=== PATIENT | female | born 1960 | race Caucasian/White ===

== ENCOUNTER 2024-05-31 17:05 | Inpatient (IN) | payer BC, SELFPAY ==
[2024-05-31] VITALS (11 sets, daily range): BP systolic 109–141; BP diastolic 53–77; BMI 25.8
[2024-05-31 12:08] LABS: Urine Albumin Trace (Neg - Trace); Urine Bilirubin Negative (Negative); Urine Character Clear (Clear); Urine Color Yellow; Urine Glucose Negative (Negative); Urine Ketone Trace (Negative); Urine Leukocyte 2+ (Negative); Urine Nitrite Negative (Negative); Urine Occult Blood Trace (Negative); Urine Urobilinogen Negative (Neg - 1+); Urine pH 6.5 (5.0-9.0)
[2024-05-31 12:12] LABS: % Basophils 0.6 % (0-2); % Eosinophils 0.1 % (0-6); % Immature Granulocytes 0.1 % (0-0.5); % Lymphocytes 16.5 % (20.5-51.1); % Monocytes 8.9 % (1.7-9.3); % Neutrophils 73.8 % (42.2-75.2); Absolute Basophils 0.1 10^3/uL (0-0.2); Absolute Lymphocytes 1.7 10^3/uL (1.2-3.4); Absolute Monocytes 0.9 10^3/uL (0.1-0.6); Absolute Neutrophils 7.7 10^3/uL (1.4-6.5); Hematocrit 37.5 % (37.0-47.0); Hemoglobin 12.9 g/dL (12.0-16.0); Mean Corp Hgb Conc. 34.4 g/dL (33.0-37.0); Mean Corpuscular Volume 84.3 fL (81.0-99.0); Mean Platelet Volume 9.5 fL (7.4-10.4); Nucleated Red Blood Cells % 0 %; Platelet Count 250 10^3/uL (130-400); Red Blood Cell Count 4.45 10^6/uL (4.20-5.40); Red Cell Dist. Width 13.2 % (11.5-14.5); White Blood Cell Count 10.4 10^3/uL (4.8-10.8)
[2024-05-31 12:25] LABS: Urine Bacteria Many (Negative)
[2024-05-31 12:26] LABS: Urine Granular Cast 0-2 /LPF (0); Urine Squamous Cell 16-20 /LPF (Few)
[2024-05-31 12:27] LABS: Urine White Cell 50-60 /HPF (0-5)
[2024-05-31 12:28] LABS: Urine Red Blood Cell 0-2 /HPF (0-2)
[2024-05-31 12:29] LABS: ALT (SGPT) 19 U/L (0-35); AST (SGOT) 29 U/L (14-36); Albumin 4.3 g/dl (3.5-5.0); Alkaline Phosphatase 65 U/L (38-126); Blood Urea Nitrogen 12 mg/dl (7-17); Calcium 9.9 mg/dl (8.4-10.2); Carbon Dioxide 21 mmol/L (22-30); Chloride 106 mmol/L (98-107); Glucose 137 mg/dl (70-99); Potassium 4.1 mmol/L (3.5-5.1); Sodium 134 mmol/L (135-145); Total Bilirubin 0.6 mg/dl (0.2-1.3); eGFR > 60.00
--- NOTE | 2024-05-31 13:25 | ED.GENMED ---
History of Present Illness
General
Chief Complaint: Urinary Symptoms
Source: patient
Exam Limitations: none
Time Seen by Provider: 05/31/24 11:32
Nursing documentation reviewed up to this point in time: agreed with
History of Present Illness
History of Present Illness:
The patient is a 61-year-old female the past medical history of kidney stones and frequent UTIs who reports 2 to 3 days of low-grade fever, nausea and right flank pain. Patient was just treated with a course of antibiotics last month for urinary
tract infection. She reports she has not had a CAT scan in a while and does not know the status of her kidney stones. Patient denies abdominal pain and vomiting. She denies diarrhea.
Past History
Past History
ED Past Medical History: Other (History of back pain, neck pain, arthritis, kidney stones, bipolar disorder.)
ED Past Surgical History: Gynecological (History of tubal ligation) and Tonsilectomy
Social History
Tobacco: Smoker
Alcohol: Other
Drug: None
Personal:
Living: other
Employment: Employed
Family History
Family History: Other
Review of Systems
Review of Systems
Allergies reviewed?: Yes
All Other Systems: ROS reviewed and negative except as documented in HPI and ROS
Constitutional: Reports fatigue
EENT: Reports no symptoms
Respiratory: Reports no symptoms
Cardiac: Reports no symptoms
ABD/GI: Reports nausea and anorexia
: Reports flank pain
Musculoskeletal: Reports no symptoms
Skin: Reports no symptoms
Neurological: Reports no symptoms
Endocrine: Reports no symptoms
Hematologic/Lymphatic: Reports no symptoms
Psychiatric: Reports no symptoms
Phy Exam
Physical Exam
Physical Exam:
Physical Exam
General: no apparent distress, not acutely ill
Neck: supple. no meningeal signs. normal psoterior pharynx
Heart: s1/s2 regular rate and rhythm, no murmur. equal radial pulses.
Lungs: no acute respiratory distress. clear bilaterally
Abdomen: normal bowel sounds. not tender. Mild right flank tenderness
Neuro: alert and oriented. no focal neurological deficits
Skin: no rash
Psychiatric: well kept. interactive and cooperative
Extremities: no edema. no calf tenderness. negative homans. good distal pulses
Course
Orders/Labs/Results
Orders:
Orders
05/31/24 11:53
Complete Blood Count/With Diff Urgent
Comprehensive Metabolic Panel Urgent
Urinalysis Reflex To Culture Urgent
Date Specimen was Collected: 05/31/24
Time Specimen was Collected: 11:49
Urine Microscopic Reflex Cult Urgent
Urine Culture Urgent
[facility] Source: U
Specimen Description:
Date Specimen was Collected: 05/31/24
Time Specimen was Collected: 11:49
05/31/24 13:26
CT Abd/pel Without Iv Or Oral Urgent
Comment:
Reason For Exam: fever, UTI
05/31/24 14:44
Ciprofloxacin 400 mg/[id number] [Cipro 400 mg] 200 ml IV NOW
05/31/24 14:51
Ciprofloxacin 400 mg/[id number] [Cipro 400 mg] 200 ml IV NOW
Abnormal Lab Results
05/31/24
11:53
Absolute Neuts (auto) 7.7 H 10^3/uL
(1.4-6.5)
Absolute Monos (auto) 0.9 H 10^3/uL
(0.1-0.6)
Lymphocytes % 16.5 L %
(20.5-51.1)
Sodium 134 L mmol/L
(135-145)
Carbon Dioxide 21 L mmol/L
(22-30)
Glucose 137 H mg/dl
(70-99)
Urine Ketones Trace A
(Negative)
Ur Occult Blood Reflex Trace A
(Negative)
Leukocyte Esterase Rfl 2+ A
(Negative)
Urine WBC (Reflex) 50-60 A /HPF
(0-5)
Urine Bacteria (Reflex) Many A
(Negative)
05/31/24 11:53
05/31/24 11:53
Vital Signs
Initial and Last Documented VS:
Initial Vital Signs
Temp Pulse Resp BP Pulse Ox
99.0 F 90 16 116/67 96
05/31/24 10:46 05/31/24 10:46 05/31/24 10:46 05/31/24 10:46 05/31/24 10:46
Last Documented Vital Signs
Temp Pulse Resp BP Pulse Ox
99.0 F 84 21 113/70 96
05/31/24 10:46 05/31/24 13:56 05/31/24 13:15 05/31/24 13:56 05/31/24 13:30
MDM/Problems Addressed
Differential Diagnosis Includes:
Acute pyelonephritis, renal colic, infected kidney stone
MDM/Problems Addressed:
Patient presents with acute flank pain, fever and nausea
Chronic conditions affecting care:
History of kidney stones
Acute Exacerbation and/or Progression of Chronic Illness:
Patient may have acute hydronephrosis due to passing of kidney stone
*Radiology
Radiology exam reviewed: radiology read reviewed
*Pulse Oximetry
Patient hypoxic: no
*EKG
Interpreted by ED Provider?: NA
*Interior Design Instructor Interpretation
Rate: normal
Interpretation: normal
Rhythm: sinus
*Critical Care Note
Total Time (30-74mins, 75-104mins- exclusive of procedures): Not Applicable
Data Reviewed
Review of Other/Old Records Reveals: Labs (Urine urine culture reviewed from 2020 which showed E. coli)
Source: patient and family
Patient Management
Discussion with other providers: Hospitalist and Other (Dr. Ramos from urology)
Escalation/DeEscalation of care consider admission/obs:
Given patient's recurrent UTIs and multiple kidney stones, decision made to admit patient for IV antibiotics, especially with a low-grade fever and nausea
ED Attending Note
-
Portions of this chart may have been created with voice recognition software.� Occasional wrong word or��sound alike� substitutions may have occurred due to the inherent limitations of voice recognition software.
Discharge Plan
Departure
Patient Disposition: Admit
Date of Disposition: 05/31/24
Time of Disposition: 14:38
Admit to: Med/Surg
Presentation/result/management discussed w/ accepting MD/DO: Hospitalist
Patient with high blood pressure during this ER visit?: No
Condition: Good
Covid-19: Not Applicable
Discharge Problem:
recurrent UTI, Bilateral kidney stones
Prescriptions:
No Action
fluticasone propion-salmeterol 250-50 mcg/dose Blister With Device
1 inh INHALATION R BID
acetaminophen 500 mg Tablet
1,000 mg PO Q6HPRN PRN (Reason: mild pain)
apple cider vinegar 300 mg Tablet
600 mg PO DAILY
magnesium oxide 400 mg magnesium Capsule
400 mg PO DAILY
melatonin 10 mg Tablet
10 mg PO HS
Referrals:
Manuel Ordoñez MD [Family Provider] -
Interventions
Interventions:
*Risk Screen - Suicide Last Done: 05/31/24 11:55
*General Assessment Last Done: 05/31/24 11:54
*Neglect/Abuse Screening Last Done: 05/31/24 11:54
*ED COVID-19 Vaccine History Last Done: 05/31/24 11:54
ED-Female Genitourinary Assessment Last Done: 05/31/24 11:58
Discharge Date and Time
Print Language: UPPER SORBIAN
[2024-05-31] MEDS: CIPRO 400 MG 200 IV (14:59)
--- NOTE | 2024-05-31 16:27 | HPS.HSE ---
Addendum entered and electronically signed by Mickey Prado MD 05/31/24 17:11:
Pt with 2-3 days of fever, nausea, rt>lt flank pain
Multiple drug allergies, developed rash at infusion site while receiving Cipro
Pt seen independently and agree with TRACK REPAIR PERSON note
Lungs clear
CV reg
Abd soft, nondistended
Back without CVA tenderness
Ext no edema
Imp:UTI
left perinephric inflammatory changes of left kidney consistent with pyelonephritis
multiple abx allergies
P:IV Azactam/Vanco pending Cx results
discussed with Dr. Ramos, will need follow up in their office post dc regarding multiple stones
Original Note:
Family Physician
-
Family Physician: Manuel Ordoñez
Chief Complaint
-
Nausea, low-grade fever, bilateral flank pain
History of Present Illness
64-year-old female from home complaining of 2 to 3 days of low-grade fever, nausea with bilateral flank pain increased on the right side.. She reported she completed a course of antibiotics last month for a UTI. Urinalysis in the ER shows UTI.
She was given Cipro but developed hives. She does have allergies to amoxicillin, penicillin, erythromycin. She denies headache, sore throat, runny nose, chest pain, palpitations, shortness breath, cough, abdominal pain, diarrhea.
She has past medical history of COPD, ex-smoker, renal calculi with right ureteral stent 2012, bipolar disorder history of depression/substance abuse/alcohol use sober since 2002, chronic neck and back pain.
Medical History
Past Medical History
Past Medical History: Reports Other
Additional Past Medical History:
COPD
Former smoker 1 pack a day x 54 years quit 2020
chronic back pain/neck pain
Arthritis
Renal calculi
Bipolar disorder-reports diagnosed when she was in active addiction
Prior alcohol abuse sober since 2002
Past Surgical History: Reports Other
Additional Past Surgical History:
Tubal ligation
Tonsillectomy
Right ureteral stent 2012 for stone with removal
Social History
Tobacco: Former Smoker (Former smoker 1 pack a day x 54 years quit 2020)
Alcohol: Former (Quit 2002)
Personal:
Living: With Family
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
Family History
Family History: Not pertinent
Allergies / Home Medications
Allergies reflects when Allergies were last updated in [facility].
Home Medications with original date entered in [facility]
Allergy/Medication List:
Allergies
Allergy/AdvReac Type Severity Reaction Status Date / Time
ciprofloxacin [From Cipro] Allergy Intermediate Rash Verified 05/31/24 15:15
erythromycin base Allergy rapid Verified 07/26/21 12:48
[Erythromycin Base] heart rate
Penicillins Allergy Hives Verified 07/26/21 12:48
prochlorperazine edisylate Allergy slurred Verified 07/26/21 12:48
[From Compazine] speech
prochlorperazine maleate Allergy pt has had Verified 07/26/21 12:48
[From Compazine] a dystonic
type
reaction
in the past
Home Medications
acetaminophen 500 mg tablet 1,000 mg PO Q6HPRN PRN mild pain 05/31/24
apple cider vinegar 300 mg tablet 600 mg PO DAILY 05/31/24
fluticasone 250 mcg-salmeterol 50 mcg/dose blistr powdr for inhalation 1 inh inhalation R BID 05/31/24
magnesium oxide 400 mg PO DAILY 05/31/24
melatonin 10 mg tablet 10 mg PO HS 05/31/24
Review of Systems
-
History Source: Patient and Family (Daughter at bedside)
A 12 point ROS was completed and negative except as noted: Yes
Constitutional: Reports Fever; Denies Chills
EENT: Denies Sore Throat or Runny Nose
Respiratory: Denies Cough or Trouble Breathing
Cardiac: Denies Chest Pain, Diaphoresis, Palpitations or Syncope
Abdomen/GI: Reports Nausea; Denies Vomiting, Diarrhea, Constipated or Bloody Stools
: Reports Flank Pain (Bilateral); Denies Incontinence, Difficulty Voiding or Urgency
Musculoskeletal: Denies Joint Pain or Edema
Skin: Denies Itching or Rash
Neurological: Denies Dizzy or Headache
Endocrine: Reports No Symptoms
Hematologic/Lymphatic: Reports No Symptoms
Psych: Reports Calm
Physical Exam
Vital Signs
Vital Signs
Temp Pulse Resp BP Pulse Ox
99.0 F 77 20 122/63 97
05/31/24 10:46 05/31/24 15:45 05/31/24 15:45 05/31/24 15:04 05/31/24 15:45
Physical Exam
General: Comfortable and Conversant; No Pain, Fever or Chills
HEENT: NormoCephalic, Anicteric, Moist mucous membranes, PERRLA, [place] Conjunctivae and No Ptosis
Respiratory: Clear; No Wheezes, Rales or Rhonchi
Cardiac: S1/S2 and Regular Rhythm; No Murmur, Rub, Gallop or Peripheral Edema
GI: Soft, Non Tender, Non Distended and No Hepatosplenomegaly
Genito-urinary: No costovertebral tender
Musculoskeletal: No Clubbing, No Cyanosis and No Edema
Skin: Warm; No Dry or Rash
Neuro: AO x 3, No Motor Deficits, Nonfocal/grossly intact, Cranial Nerves Intact and No Sensory Deficits; No Slurred Speech, Facial Droop or Tremors
Psych: Calm
Laboratory Results
-
05/31/24 11:53
05/31/24 11:53
Laboratory Results
Total Bilirubin 0.6 mg/dl (0.2-1.3) 05/31/24 11:53
AST 29 U/L (14-36) 05/31/24 11:53
ALT 19 U/L (0-35) 05/31/24 11:53
Alkaline Phosphatase 65 U/L (38-126) 05/31/24 11:53
Impression/Plan
-
Impression/plan:
Admit to MedSurg
#Symptomatic UTI
Recent antibiotics 1 month ago
History of renal calculi requiring ureteral stent in 2012-followed with Dr. Mchugh
-Allergic reaction to Cipro in ER with hives allergy to penicillin E-Mycin
-Will give IV vancomycin, IV Azactam
-Follow CBC, CMP, urine culture
CT abdomen pelvis without contrast:
1.No CT evidence for ureteral calculus or hydroureteronephrosis.
2. SEVERE BILATERAL MEDULLARY NEPHROCALCINOSIS.
3. Large number of nonobstructing left intrarenal calculi.
4. Moderate amount of fecal material throughout the colon.
#COPD-no acute exacerbation
[id number] 3 years ago prior 1 pack a day
-Continue fluticasone inhaler twice daily
#Bipolar disorder /history of depression
-No reported meds, reports was diagnosed with this during active addiction
#History of Alcohol use sober since 2002
#chronic neck and back pain
-Continue Tylenol as needed
#Insomnia
-Continue melatonin 10 mg at bedtime
DVT prophylaxis
Subcu Lovenox
Full code
--- NOTE | 2024-05-31 17:45 | PTCARENOTE ---
Received Pt from ED on a stretcher. Walked from stretcher to bed. AAOx3 able to make needs known. Started on NSS 100ml/hr. VSS. Oriented to room and use of call betancourt. Son at bedside.
[2024-05-31] MEDS: NSS 1000 IV (17:56)
[2024-05-31] MEDS: LOVENOX 40 MG SC (18:42)
--- NOTE | 2024-05-31 18:49 | PHA.VAN.IN ---
Assessment
- Assessment
Renal Function: Appears similar to baseline
Maximum Temperature: 99
Minimum Temperature: 98.2
Concomitant Antimicrobials: Aztreonam
AUC Dosing Plan
- Dosing Variables
Dosing Weight (kg): 74.6
Dosing CrCl (ml/min): 56
Vd coefficient (L/kg): 0.7
- Empiric Dosing
Initial / Loading Dose: 1500mg
Maintenance Regimen: 1250mg Q24H
Estimated AUC (mcg*h/mL): 488
Estimated Peak (mcg*h/mL): 33.9
Estimated Trough (mcg/ml): 10.8
Estimated Half Life (H): 13.6
- Monitoring
No levels ordered at this time: Consider levels in next few days
Pharmacokinetics Vancomycin I
- -
Patient Age: 64
Patient Sex: Female
Vancomycin Day #: 1
Indication: Genito-Urinary Tract
Requesting Provider: Ruthann Hernandez
Pertinent Antimicrobial Allergies:
Ciprofloxacin, Erythromycin, Penicillins
Height / Weight:
Height 5 ft 7 in
Actual Weight 74.644 kg
Pertinent Past Medical History: Substance abuse sober since 2002
- Vital Signs / Lab Results
Temp Pulse Resp BP Pulse Ox
98.2 F 81 18 141/66 97
05/31/24 17:30 05/31/24 17:30 05/31/24 17:30 05/31/24 17:30 05/31/24 17:30
Lab Results - Hematology
05/31/24
11:53
WBC 10.4
Lab Results - Chemistry
05/31/24
11:53
BUN 12
Creatinine 1.0
Albumin 4.3
Lab Results - Urine
05/31/24
11:53
Urine Nitrite (Reflex) Negative
Leukocyte Esterase Rfl 2+ A
Urine WBC (Reflex) 50-60 A
Ur Squamous Epith Cells 16-20
Urine Bacteria (Reflex) Many A
[2024-05-31] MEDS: ADVAIR HFA 115/21 MCG INHALER INH (19:36)
[2024-05-31] MEDS: VANCOCIN 300 ML IV (19:40)
[2024-05-31] MEDS: VANCOCIN 300 MG IV (19:40)
[2024-05-31] MEDS: TORADOL 15 MG IV (20:02)
[2024-05-31] MEDS: AZACTAM 1000 MG IV (21:59)
[2024-05-31] MEDS: MELATONIN 10 MG PO (21:59)
[2024-05-31] MEDS: STERILE WATER FOR INJECTION 10 ML IV (21:59)
[2024-06-01] MEDS: NSS 1000 IV ×3 (05:41→21:32)
[2024-06-01] MEDS: AZACTAM 1000 MG IV (05:50)
[2024-06-01] MEDS: STERILE WATER FOR INJECTION 10 ML IV ×2 (05:51→13:29)
[2024-06-01 06:49] LABS: % Basophils 0.6 % (0-2); % Eosinophils 1.4 % (0-6); % Immature Granulocytes 0.4 % (0-0.5); % Lymphocytes 32.6 % (20.5-51.1); % Monocytes 12.7 % (1.7-9.3); % Neutrophils 52.3 % (42.2-75.2); Absolute Eosinophils 0.1 10^3/uL (0-0.7); Absolute Lymphocytes 2.3 10^3/uL (1.2-3.4); Absolute Monocytes 0.9 10^3/uL (0.1-0.6); Absolute Neutrophils 3.7 10^3/uL (1.4-6.5); Hematocrit 36.1 % (37.0-47.0); Hemoglobin 12.2 g/dL (12.0-16.0); Mean Corp Hgb Conc. 33.8 g/dL (33.0-37.0); Mean Corpuscular Hgb 29.6 pg (27.0-31.0); Mean Corpuscular Volume 87.6 fL (81.0-99.0); Mean Platelet Volume 9.6 fL (7.4-10.4); Nucleated Red Blood Cells % 0 %; Platelet Count 218 10^3/uL (130-400); Red Blood Cell Count 4.12 10^6/uL (4.20-5.40); Red Cell Dist. Width 13.2 % (11.5-14.5); White Blood Cell Count 7.1 10^3/uL (4.8-10.8)
[2024-06-01 07:00] VITALS: BP 129/63
[2024-06-01 07:09] LABS: ALT (SGPT) 16 U/L (0-35); AST (SGOT) 25 U/L (14-36); Albumin 3.7 g/dl (3.5-5.0); Alkaline Phosphatase 58 U/L (38-126); Blood Urea Nitrogen 17 mg/dl (7-17); Calcium 9.5 mg/dl (8.4-10.2); Carbon Dioxide 20 mmol/L (22-30); Chloride 108 mmol/L (98-107); Estimated Creatinine Clearance 56 ml/min; Glucose 94 mg/dl (70-99); Sodium 135 mmol/L (135-145); Total Bilirubin 0.4 mg/dl (0.2-1.3); Total Protein 6.2 g/dl (6.3-8.2); eGFR > 60.00
[2024-06-01] MEDS: ADVAIR HFA 115/21 MCG INHALER 2 PUFF INH ×2 (07:53→19:21)
--- NOTE | 2024-06-01 09:21 | W.PN.HOSP.TC ---
Today's Communication/Plan
-
see bold
Assessment / Plan
Assessment / Plan
#Symptomatic UTI
#Acute left pyelonephritis
Urine cultures growing E. coli, sensitivities pending
Change IV vancomycin, IV Azactam to IV Rocephin
#COPD-no acute exacerbation
[id number] 3 years ago prior 1 pack a day
-Continue fluticasone inhaler twice daily
#Bipolar disorder /history of depression
-No reported meds, reports was diagnosed with this during active addiction
#History of Alcohol use sober since 2002
#chronic neck and back pain
-Continue Tylenol as needed
#Insomnia
-Continue melatonin 10 mg at bedtime
DVT prophylaxis�subcu Lovenox
Full code
Total time spent to see the patient on the floor, examine the patient, review data and lab results, discuss treatment plan with patient, nursing staff around 36 minutes.
Physical Exam
General: No acute distress
HEENT: Normocephalic, Atraumatic, EOMI, MMM
Respiratory: Clear to Auscultation bilaterally
Cardiac: Normal S1/S2, Regular Rate and Rhythm
GI: Soft, Nontender, Nondistended, Normal Bowel Sounds
Extremities: No Clubbing, Cyanosis, or Edema
Neuro: Nonfocal/Grossly Intact
Psych: Calm, Cooperative
Derm: No Visible lesions
Anticipated Discharge: Within 24 hours
Subjective/Interval History
-
Date of Service: June 01, 2024
Dysuria resolved. Patient feels better. No fever, no nausea, no vomiting.
Objective Data
-
Labs:
Laboratory Results
06/01/24
06:04
WBC 7.1
Hgb 12.2
Hct 36.1 L
Plt Count 218
Sodium 135
Potassium 4.0
Chloride 108 H
Carbon Dioxide 20 L
BUN 17
Creatinine 1.0
Glucose 94
Calcium 9.5
Total Bilirubin 0.4
AST 25
ALT 16
Alkaline Phosphatase 58
Vital Signs:
Vital Signs
Temp Pulse Resp BP Pulse Ox
98.2 F 88 16 129/63 97
06/01/24 07:00 06/01/24 08:18 06/01/24 08:18 06/01/24 07:00 06/01/24 08:18
I&O
05/31/24 06/01/24 06/02/24
06:59 06:59 06:59
Intake Total 1460 / 1460
Balance 1460 / 1460
[2024-06-01 10:48] VITALS: BP 123/70; PULSE 79
--- NOTE | 2024-06-01 12:47 | CM ---
Reviewed chart, met with patient to obtain information for assessment. Patient lives with her daughter in a single two story home with three steps to enter. She described herself as independent with her ADLs, personal care, dressing and bathing. She
ambulates without use of an assistive device. She can cook, clean, do senior site manager and laundry. She drives and can get to her appointments and does her own shopping. Patient is employed advanced practice rn.
Patient denied any DME in her home.
She has not had VN.
Patient has not been to a SNF in the past.
Patient has a prescription plan and uses, [facility] in [place] for all of his medications.
Patient's PCP is, Dr. Manuel Ordoñez.
Patient stated that she feels functionally at her baseline and will be able to return home when medically cleared for discharge.
Plan: Case management will continue to follow and assist with discharge planning. Home when stable.
[2024-06-01] MEDS: ROCEPHIN 1000 MG IV (13:28)
[2024-06-01] MEDS: TORADOL 15 MG IV (13:35)
[2024-06-01 15:00] VITALS: BP 119/63
[2024-06-01] MEDS: LOVENOX 40 MG SC (17:09)
[2024-06-01] MEDS: MELATONIN 10 MG PO (21:31)
[2024-06-01 23:00] VITALS: BP 122/64
[2024-06-02] MEDS: TORADOL 15 MG IV (02:15)
[2024-06-02 07:00] VITALS: BP 121/64
[2024-06-02] MEDS: ADVAIR HFA 115/21 MCG INHALER 2 PUFF INH (07:15)
--- NOTE | 2024-06-02 08:25 | W.PN.HOSP.TC ---
Today's Communication/Plan
-
Discharge today
Assessment / Plan
Assessment / Plan
#Symptomatic UTI
#Acute left pyelonephritis
Urine cultures growing E. coli, pansensitive
Status post IV vancomycin and IV Azactam
Currently on IV Rocephin
Medically stable for discharge on Bactrim to complete a 7-day course
She has been tolerating all the above antibiotics without any adverse reactions, follow-up with PCP in 1 week
#Bilateral nephrolithiasis
Follow-up urology in the office in 2-3 weeks
#COPD-no acute exacerbation
[id number]-[id number] 3 years ago prior 1 pack a day
-Continue fluticasone inhaler twice daily
#Bipolar disorder /history of depression
-No reported meds, reports was diagnosed with this during active addiction
#History of Alcohol use sober since 2002
#chronic neck and back pain
-Continue Tylenol as needed
#Insomnia
-Continue melatonin 10 mg at bedtime
DVT prophylaxis�subcu Lovenox
Full code
Physical Exam
General: No acute distress
HEENT: Normocephalic, Atraumatic, EOMI, MMM
Respiratory: Clear to Auscultation bilaterally
Cardiac: Normal S1/S2, Regular Rate and Rhythm
GI: Soft, Nontender, Nondistended, Normal Bowel Sounds
Extremities: No Clubbing, Cyanosis, or Edema
Neuro: Nonfocal/Grossly Intact
Psych: Calm, Cooperative
Derm: No Visible lesions
Anticipated Discharge: Today
Subjective/Interval History
-
Date of Service: June 02, 2024
Patient continues to feel better. She did have transient right-sided flank pain, resolved with Toradol. No fever, no nausea, no vomiting.
Objective Data
-
Vital Signs:
Vital Signs
Temp Pulse Resp BP Pulse Ox
97.8 F 63 16 121/64 98
06/02/24 07:00 06/02/24 07:18 06/02/24 07:18 06/02/24 07:00 06/02/24 07:18
I&O
06/01/24 06/02/24 06/03/24
06:59 06:59 06:59
Intake Total 1460 / 1460 3160 / 3160
Balance 1460 / 1460 3160 / 3160
[2024-06-02] MEDS: BACTRIM DS 800 MG/160 MG 1 TABLET PO (08:43)
--- NOTE | 2024-06-02 10:30 | W.DCSUMMARY ---
Discharge Summary
Discharge Data
Date of Admission: 05/31/24
Date of Discharge: 06/02/24
-
Pending Results: No
Hospital Course
Discharge diagnosis:
Acute symptomatic urinary tract infection
Acute left pyelonephritis
Adverse reactions to multiple antibiotics
Bilateral nephrolithiasis
Chronic obstructive pulmonary disease
History of bipolar disorder/depression
Chronic neck and back pain
Insomnia
CT abdomen pelvis:
1. No CT evidence for ureteral calculus or hydroureteronephrosis.
2. SEVERE BILATERAL MEDULLARY NEPHROCALCINOSIS.
3. Large number of nonobstructing left intrarenal calculi.
4. Moderate amount of fecal material throughout the colon.
5. There is mild left perinephric inflammation.
Hospital course:
64-year-old female with a past medical history of bilateral nephrolithiasis, COPD, insomnia, and adverse reactions to multiple antibiotics was admitted for acute urinary tract infection with left-sided pyelonephritis. Patient develops rash in
response to ciprofloxacin, penicillin. She initially was treated with IV vancomycin and aztreonam. She was then transitioned to IV Rocephin. She tolerated these antibiotics.
Urine cultures grew out pansensitive E. coli. She was transitioned to Bactrim. She tolerated Bactrim as well. Patient is medically stable for discharge on Bactrim to complete a 7-day course. She has been referred to urology outpatient for
management of her bilateral nephrolithiasis. She has been instructed to follow-up with her primary care doctor as well.
Disposition: Home self-care
Discharge planning: Required 33-minute
Discharge Plan
-
Patient Disposition: Home (Routine Discharge)
Discharge Diagnosis/Procedures: Acute urinary tract infection, acute left pyelonephritis, bilateral nephrolithiasis/kidney stones, constipation
Condition: Good
Diet: Regular
Activity: As tolerated
Driving Restrictions: As prior to admission
Activity Restrictions/Additional Instructions:
Please follow-up with your primary care doctor in 1 week, and urology in the office in 2-3 weeks.
Call to schedule appointments.
Referrals:
Manuel Ordoñez MD [Family Provider] - in one week
Keron Ramos MD [Active] - in two to three weeks (Call for appointment)
Prescriptions:
New
sulfamethoxazole-trimethoprim 800-160 mg Tablet
1 tab PO BID 5 Days Qty: 10 0RF
polyethylene glycol 3350 17 gram/dose powder
17 g PO DAILY Qty: 510 0RF
ibuprofen 800 mg tablet
800 mg PO TID PRN (Reason: severe pain) Qty: 30 0RF
Continued
fluticasone propion-salmeterol 250-50 mcg/dose Blister With Device
1 inh INHALATION R BID
acetaminophen 500 mg Tablet
1,000 mg PO Q6HPRN PRN (Reason: mild pain)
apple cider vinegar 300 mg Tablet
600 mg PO DAILY
magnesium oxide 400 mg magnesium Capsule
400 mg PO DAILY
melatonin 10 mg Tablet
10 mg PO HS
Discharge Orders:
Discharge Patient (As Directed); Ordered 06/02/24
Ordered By: Ricardo Ingram
Discharge Date and Time
Discharge Date/Time: 06/02/24 12:32
Print Language: ARMENIAN
[2024-06-02 11:00] VITALS: BP 115/59
--- NOTE | 2024-06-02 11:23 | CM ---
CM reviewed chart and noted dc order
Bedside meeting with pt- no dc needs noted
Requesting physician note for employer
TT/Dr Do and she will provide
Pt has arranged for ride home
Discharge Disposition- home, no needs
== END 2024-06-02 12:32 | disposition home or self-care (01) | DRG 690 ==
LOC: 3 WEST ACU 17:05
PROVIDERS: Clinical Nurse Specialist Family Health; ADMITTING PHYSICIAN Internal Medicine; ATTENDING PHYSICIAN Family Medicine; EMERGENCY PHYSICIAN Emergency Medicine; FAMILY PHYSICIAN Family Medicine
DX: N10 Acute pyelonephritis (principal); N20.0 Calculus of kidney; B96.20 Unspecified Escherichia coli [E. coli] as the cause of diseases classified elsewhere; J44.9 Chronic obstructive pulmonary disease, unspecified; F31.9 Bipolar disorder, unspecified; G89.29 Other chronic pain; G47.00 Insomnia, unspecified; K59.00 Constipation, unspecified; M19.90 Unspecified osteoarthritis, unspecified site; Z87.891 Personal history of nicotine dependence; Z88.0 Allergy status to penicillin; Z88.1 Allergy status to other antibiotic agents
CPT/HCPCS: 74176; 80053; 81003; 81015; 85025; 87070; 87086; 87088; 87186; 94640; 96374; 97162; 99285

== ENCOUNTER → 2024-09-14 07:52 | Outpatient (REF) | payer BC, SELFPAY | LOC: RAD 07:52 | PROVIDERS: ATTENDING PHYSICIAN Obstetrics & Gynecology; FAMILY PHYSICIAN Physician Assistant Medical | DX: N81.4 Uterovaginal prolapse, unspecified (principal); N81.11 Cystocele, midline; N81.6 Rectocele; N39.46 Mixed incontinence | CPT/HCPCS: 76830; 76856 ==

== ENCOUNTER 2025-02-17 12:34 | Emergency (ER) | payer BC, SELFPAY ==
[2025-02-17 12:36] VITALS: BP 147/76
[2025-02-17 14:58] VITALS: BP 134/74
[2025-02-17 15:00] VITALS: BP 125/71
[2025-02-17 15:11] LABS: Urine Albumin 1+ (Neg - Trace); Urine Bilirubin Negative (Negative); Urine Character Clear (Clear); Urine Color Yellow; Urine Glucose Negative (Negative); Urine Ketone Negative (Negative); Urine Leukocyte 3+ (Negative); Urine Nitrite Negative (Negative); Urine Occult Blood 1+ (Negative); Urine Specific Gravity 1.015 (<1.030); Urine Urobilinogen Negative (Neg - 1+)
[2025-02-17 15:19] LABS: Hemoglobin 13.2 g/dL (12.0-16.0); Mean Corp Hgb Conc. 33.8 g/dL (33.0-37.0); Mean Corpuscular Volume 88.6 fL (81.0-99.0); Mean Platelet Volume 8.9 fL (7.4-10.4); Platelet Count 252 10^3/uL (130-400); Red Cell Dist. Width 13.4 % (11.5-14.5); White Blood Cell Count 11.5 10^3/uL (4.8-10.8)
--- NOTE | 2025-02-17 15:19 | ED.GENMED ---
History of Present Illness
General
Chief Complaint: Medication Reaction
Time Seen by Provider: 02/17/25 13:34
History of Present Illness
History of Present Illness:
64-year-old female with history of recurrent urine infections presenting to the emergency department for concern of allergic reaction to a medication. Patient reports that she has had this ongoing rash to her back. Has been following with her
doctor. A few weeks ago patient was started on a prednisone pack for the rash. The rash improved, however returned. On Saturday, she saw her doctor again who restarted her on steroids. The rash has again gone away, however is now on a prolonged
taper. On Saturday however, she also started sertraline, which she has never taken in the past as well as Bactrim for a UTI, however, has tolerated Bactrim in the past. Notes on Saturday after starting the new medications, started to have some
indigestion, palpitations, blurred vision. She talked to her doctor who recommended that she come to the hospital with concern for allergic reaction. Denies any difficulty breathing. Denies fever. She is concerned that it is the sertraline since
she has never had this medication before. Reports most of all her symptoms have resolved, is still having some intermittent indigestion. Denies additional acute medical complaints
Past History
Past History
ED Past Medical History: Other (History of back pain, neck pain, arthritis, kidney stones, bipolar disorder.)
ED Past Surgical History: Gynecological (History of tubal ligation) and Tonsilectomy
Social History
Tobacco: Smoker
Alcohol: Other
Drug: None
Personal:
Living: other
Employment: Employed
Family History
Family History: Other
Phy Exam
Physical Exam
Physical Exam:
General: Well-appearing, no clinical signs of dehydration, nontoxic and in no acute distress
HEENT: protecting airway
Neck: appears supple
CV: Normal heart rate, regular rhythm
Resp: No accessory muscle use, no increased work of breathing, lungs clear to auscultation bilaterally
Abd: Soft and non-distended, no tenderness to palpation, no CVA tenderness,
Extremities: No deformities, no swelling, no erythema
Neuro: alert, no focal neurologic deficit
: deferred
Rectal: deferred
Psych: Normal affect
Skin: Intact, no significant rashes
Course
Orders/Labs/Results
Orders:
Orders
02/17/25 12:41
Electrocardiogram (*1) Urgent
Reason for Study: Shortness of Breath
EKG- Treatment ONCE
02/17/25 14:51
Complete Blood Count/With Diff Urgent
Comprehensive Metabolic Panel Urgent
Troponin I Urgent
Urinalysis Reflex To Culture Urgent
Date Specimen was Collected: 02/17/25
Time Specimen was Collected: 14:36
Urine Microscopic Reflex Cult Urgent
Urine Culture Urgent
[facility] Source: U
Specimen Description:
Date Specimen was Collected: 02/17/25
Time Specimen was Collected: 14:36
Abnormal Lab Results
02/17/25
14:51
WBC 11.5 H 10^3/uL
(4.8-10.8)
Creatinine 1.3 H mg/dL
(0.6-1.0)
Ur Occult Blood Reflex 1+ A
(Negative)
Leukocyte Esterase Rfl 3+ A
(Negative)
Urine RBC 3-6 A /HPF
(0-2)
Urine WBC (Reflex) 30-40 A /HPF
(0-5)
Urine Bacteria (Reflex) Few A
(Negative)
Urine Albumin (Reflex) 1+ A
(Neg - Trace)
02/17/25 14:51
02/17/25 14:51
Vital Signs
Initial and Last Documented VS:
Initial Vital Signs
Temp Pulse Resp BP Pulse Ox
98.0 F 84 16 147/76 98
02/17/25 12:36 02/17/25 12:36 02/17/25 12:36 02/17/25 12:36 02/17/25 12:36
Last Documented Vital Signs
Temp Pulse Resp BP Pulse Ox
98.0 F 81 20 125/71 99
02/17/25 12:36 02/17/25 15:00 02/17/25 15:00 02/17/25 15:00 02/17/25 15:00
MDM/Problems Addressed
MDM/Problems Addressed:
64-year-old female with history of recurrent UTI presenting to the emergency department for concern of allergic reaction. Vital signs are normal.
On exam patient is resting comfortably, no acute distress or discomfort. Patient's only symptom at this time is some indigestion, declining any medication for it. EKG obtained on arrival, nonischemic. Lower suspicion for ACS equivalent.
Regarding concern for allergic reaction, appears more consistent with medication side effect or intolerance. No systemic rash, no respiratory symptoms, no's significant GI symptoms, without concern for anaphylaxis. Do not suspect that source of
issue is prednisone, was just on a prednisone taper without issue. Unlikely to be Bactrim, has tolerated in the past. Could potentially be the sertraline, which is patient's only new medication. Advise holding this medication going forward. Will
screen with laboratory analysis. Will also send urinalysis.
15:30 - Labs are unremarkable. Patient remains stable. At this time advising to hold the sertraline, feel reasonable to continue the prednisone taper. Advising to switch UTI medication. Urine still shows some sign of infection with leukocytes
and RBCs. Patient does have history of kidney stones, however is not complaining of any back pain or abdominal pain, no CVA tenderness. Patient would prefer to stay on the Bactrim since she is only had a few of the tablets. Feel that this is
reasonable given that patient is not having a true allergic reaction to her medications.. Otherwise feel stable for discharge. Return precautions discussed and patient verbalized understanding
*EKG
Interpreted by ED Provider?: Yes
EKG Intrepretation Date: 02/17/25
EKG Intrepretation Time: 15:26
Interpretation: normal
Heart Rate: 76
Rate: normal
Rhythm: sinus
[place]: normal axis
Interval: normal interval
QRS Pattern: normal QRS
Ischemia: no ischemia
*Critical Care Note
Total Time (30-74mins, 75-104mins- exclusive of procedures): Not Applicable
ED Attending Note
-
Portions of this chart may have been created with voice recognition software.� Occasional wrong word or��sound alike� substitutions may have occurred due to the inherent limitations of voice recognition software.
Discharge Plan
Departure
Patient Disposition: Home (Routine Discharge)
Date of Disposition: 02/17/25
Time of Disposition: 15:44
Patient with high blood pressure during this ER visit?: No
Condition: Good
Discharge Problem:
Medication adverse effect
Instructions: Side effects from medicines
Prescriptions:
No Action
fluticasone propion-salmeterol 250-50 mcg/dose Blister With Device
1 inh INHALATION R BID
acetaminophen 500 mg Tablet
1,000 mg PO Q6HPRN PRN (Reason: mild pain)
apple cider vinegar 300 mg Tablet
600 mg PO DAILY
magnesium oxide 400 mg magnesium Capsule
400 mg PO DAILY
melatonin 10 mg Tablet
10 mg PO HS
sulfamethoxazole-trimethoprim 800-160 mg Tablet
1 tab PO BID 5 Days Qty: 10 0RF
polyethylene glycol 3350 17 gram/dose powder
17 g PO DAILY Qty: 510 0RF
ibuprofen 800 mg tablet
800 mg PO TID PRN (Reason: severe pain) Qty: 30 0RF
Referrals:
Manuel Ordoñez MD [Family Provider] -
Interventions
Interventions:
*Risk Screen - Suicide Last Done: 02/17/25 12:36
*General Assessment Last Done: 02/17/25 15:04
*Neglect/Abuse Screening Last Done: 02/17/25 12:36
*ED- Fall Risk Assessment Last Done: 02/17/25 15:04
*ED COVID-19 Vaccine History Last Done: 02/17/25 15:04
ED-Skin Assessment Last Done: 02/17/25 15:04
ED- Pulmonary Assessment Last Done: 02/17/25 15:04
ED-EENT Assessment Last Done: 02/17/25 15:05
Discharge Date and Time
Print Language: [email or web address]
[2025-02-17 15:23] LABS: ALT (SGPT) 17 U/L (0-35); AST (SGOT) 23 U/L (14-36); Alkaline Phosphatase 81 U/L (38-126); Blood Urea Nitrogen 16 mg/dl (7-17); Calcium 9.7 mg/dl (8.4-10.2); Carbon Dioxide 25 mmol/L (22-30); Chloride 107 mmol/L (98-107); Glucose 93 mg/dl (70-99); Potassium 4.1 mmol/L (3.5-5.1); Sodium 139 mmol/L (135-145); Total Bilirubin 0.5 mg/dl (0.2-1.3); Total Protein 6.9 g/dl (6.3-8.2); eGFR 46.21
[2025-02-17 15:30] LABS: Urine Bacteria Few (Negative); Urine Squamous Cell 26-30 /LPF (Few); Urine White Cell 30-40 /HPF (0-5)
[2025-02-17 15:35] LABS: Troponin I < 0.012 ng/ml
[2025-02-17 17:19] LABS: % Basophils 0.4 % (0-2); % Eosinophils 1.3 % (0-6); % Immature Granulocytes 0.3 % (0-0.5); % Lymphocytes 37.3 % (20.5-51.1); % Monocytes 7.5 % (1.7-9.3); % Neutrophils 53.2 % (42.2-75.2); Absolute Basophils 0.1 10^3/uL (0-0.2); Absolute Eosinophils 0.2 10^3/uL (0-0.7); Absolute Lymphocytes 4.3 10^3/uL (1.2-3.4); Absolute Monocytes 0.9 10^3/uL (0.1-0.6); Absolute Neutrophils 6.1 10^3/uL (1.4-6.5); Nucleated Red Blood Cells % 0 %
== END 2025-02-17 16:17 | disposition home or self-care (01) ==
LOC: EMR 12:34
PROVIDERS: EMERGENCY PHYSICIAN Student in an Organized Health Care Education/Training Program; FAMILY PHYSICIAN Family Medicine
DX: K30 Functional dyspepsia (principal); R00.2 Palpitations; R21 Rash and other nonspecific skin eruption; H53.9 Unspecified visual disturbance; T50.905A Adverse effect of unspecified drugs, medicaments and biological substances, initial encounter; F17.200 Nicotine dependence, unspecified, uncomplicated; N39.0 Urinary tract infection, site not specified
CPT/HCPCS: 99284; 80053; 81003; 81015; 84484; 85025; 87086; 93005